=== PATIENT | male | born 1945 | race Hispanic/Latino ===

== ENCOUNTER 2023-05-12 09:00 | Outpatient (CLI) | payer OTHER | END 2023-05-12 09:01 | disposition home or self-care (01) | LOC: CSHCP 09:00 | PROVIDERS: ATTEND Internal Medicine | DX: J45.20 Mild intermittent asthma, uncomplicated (principal); J20.8 Acute bronchitis due to other specified organisms | CPT/HCPCS: 94010; 94726; 94729; 94760 ==